=== PATIENT | female | born 1995 | race Caucasian/White ===

== ENCOUNTER 2016-12-11 12:57 | Emergency (ER) | payer OTHER ==
[~2016-12-11] VITALS: Ht 165.1 cm; Wt 77.6 kg
[2016-12-11 13:33] LABS: HEMATOCRIT 40.9 % (36.0-46.0); MCH 27.3 PG (29.0-34.0); MCHC 33.5 G/DL (30.0-36.0); PLATELET COUNT 265 K/uL (156-360); RBC DIS.WIDTH-CV 12.7 % (11.8-14.6); RBC DIS.WIDTH-SD 36.7 % (39-53); RED BLOOD COUNT 5.02 M/uL (3.80-5.20); WHITE BLOOD COUNT 8.5 K/uL (4.1-10.2)
[2016-12-11 13:35] LABS: MCV 81.5 FL (83-99)
[2016-12-11 13:46] LABS: CHLORIDE 106 mEq/L (99-109); POTASSIUM 4.1 mEq/L (3.7-5.4); SODIUM 138 mEq/L (136-147)
[2016-12-11 13:48] LABS: GLUCOSE 91 mg/dL (70-99)
[2016-12-11 13:49] LABS: ANION GAP 11 MEQ/L (2-14)
[2016-12-11 13:50] LABS: TOTAL BILIRUBIN 0.4 mg/dL (0.0-1.0)
[2016-12-11 13:51] LABS: ALKALINE PHOSPHATASE 61 IU/L (3-129)
[2016-12-11 13:52] LABS: GFR ESTIMATE (CALCULATED) > 59 mL/min/
[2016-12-11 13:53] LABS: UREA NITROGEN (BUN) 11 mg/dL (9-23)
[2016-12-11 14:00] LABS: QUANTITATIVE HCG < 4.0 MIU/ML
[2016-12-11] MEDS ORDERED: SUPER B MAXI C0.4 MG PO (14:31)
[2016-12-11] MEDS ORDERED: TOPIRAMATE25 MG PO (14:31)
[2016-12-11] MEDS ORDERED: DROSPIRENONE-E1 EAC1 PO (14:32)
[2016-12-11] MEDS ORDERED: CENTRUM COMPLE1 EACH PO (14:32)
[2016-12-11 14:43] LABS: ADD MIUA? NO; BILIRUBIN NEGATIVE; BLOOD NEGATIVE; COLOR YELLOW ((YELLOW)); GLUCOSE (STRIP) NEGATIVE; KETONES NEGATIVE; LEUKOCYTES NEGATIVE; NITRITE NEGATIVE; PROTEIN (STRIP) NEGATIVE; SPECIFIC GRAVITY 1.019 (1.000-1.030); UCUL ADDED? NO; UROBILINOGEN 0.2 MG/DL (0.2-1.0)
[2016-12-11] MEDS ORDERED: BENTYL20 MG PO (16:57)
[2016-12-11] MEDS ORDERED: ZOFRAN ODT4 MG PO (16:57)
[2016-12-11] MEDS ORDERED: CITRATE OF MAG296 ML PO (16:59)
[2016-12-11 17:21] VITALS: BP 120/72
[2016-12-12] MEDS ORDERED: ZITHROMAX Z-PA250 MG PO (15:01)
== END 2016-12-11 17:24 | disposition home or self-care (01) ==
LOC: EME 12:57
DX: R10.84 Generalized abdominal pain (principal); Z88.0 Allergy status to penicillin
CPT/HCPCS: 74176; 80053; 81003; 84702; 85027; 99281; 99284; J3010

== ENCOUNTER → 2017-02-09 | Outpatient (CLI) | payer OTHER ==
[~2017-02-09] VITALS: Ht 165.1 cm; Wt 77.1 kg
[~2017-02-09] MED LIST: BENTYL20 MG PO; CENTRUM COMPLE1 EACH PO; CITRATE OF MAG296 ML PO; DROSPIRENONE-E1 EAC1 PO; ELAVIL50 MG PO; GAS RELIEF180 M1 PO; NEXIUM40 MG PO; SUPER B MAXI C0.4 MG PO; TOPIRAMATE25 MG PO; ZITHROMAX Z-PA250 MG PO; ZOFRAN ODT4 MG PO
== END | disposition home or self-care (01) ==
LOC: AMB 08:22
DX: K29.70 Gastritis, unspecified, without bleeding (principal); R11.0 Nausea; R10.9 Unspecified abdominal pain; R19.7 Diarrhea, unspecified; K62.89 Other specified diseases of anus and rectum; Z80.0 Family history of malignant neoplasm of digestive organs; Z88.0 Allergy status to penicillin; Z88.8 Allergy status to other drugs, medicaments and biological substances; J45.909 Unspecified asthma, uncomplicated; M41.9 Scoliosis, unspecified; Z82.49 Family history of ischemic heart disease and other diseases of the circulatory system; Z83.49 Family history of other endocrine, nutritional and metabolic diseases
CPT/HCPCS: 88305; 88342 TC; J2250; J3010